=== PATIENT | male | born 1990 | race Caucasian/White ===

== ENCOUNTER 2020-03-27 10:12 | Emergency (ER) | payer OTHER ==
[~2020-03-27] VITALS: Ht 170.2 cm; Wt 68.0 kg
[2020-03-27 10:27] VITALS: BP 133/87
== END 2020-03-27 13:24 | disposition home or self-care (01) ==
LOC: EMS 10:14
DX: F15.10 Other stimulant abuse, uncomplicated (principal); F32.9 Major depressive disorder, single episode, unspecified
CPT/HCPCS: Z7502